=== PATIENT | female | born 1965 | race Caucasian/White ===

== ENCOUNTER 2016-11-06 12:40 | Emergency (ER) | payer OTHER ==
[2016-11-06 14:57] LABS: HEMOGLOBIN 13.4 gm/dl (12.3-15.3); RED BLOOD COUNT 4.5 M/UL (4.00-5.10); WHITE BLOOD COUNT 9.1 K/UL (4.5-11.0)
[2016-11-06 15:21] LABS: BUN/CREATININE RATIO 8 (0-10)
== END 2016-11-06 18:10 | disposition home or self-care (01) ==
LOC: ER1 12:40
PROVIDERS: Physician Assistant
DX: R07.89 Other chest pain (principal); F41.9 Anxiety disorder, unspecified; Z79.899 Other long term (current) drug therapy
CPT/HCPCS: 36415; 71020; 80053; 82550; 82553; 83874; 84484; 85025; 85379; 93005; 96360; 99285; J7030